=== PATIENT | female | born 2000 | race Caucasian/White ===

== ENCOUNTER 2018-12-24 01:16 | Emergency (ER) | payer OTHER, MEDICAID, SELFPAY ==
[2018-12-24 01:32] VITALS: BP 125/78; PULSE 108; RESP 18; TEMP 36.5; O2SAT 98
[2018-12-24 01:50] LABS: Influenza A and B by PCR Rapid Negative (Negative)
[2018-12-24 02:28] VITALS: PULSE 89; RESP 20; O2SAT 99
[2018-12-24] MEDS: ALBUTEROL/IPRATROPIUM 3 ML AMPUL INH (02:29)
[2018-12-24 02:53] VITALS: BP 122/76; PULSE 88; RESP 18; O2SAT 100
--- NOTE | 2018-12-24 03:05 | ED.URI ---
HPI - URI/Sore Throat General Chief Complaint: Upper Respiratory Symptoms Stated Complaint: hard time breathing Time Seen by Provider: 12/24/18 02:58 Source: patient Mode of arrival: Ambulatory Limitations: no limitations History of Present Illness HPI Narrative: 18-year-old female comes in with complaint of no fevers but sore throat, cough, some nasal congestion. She states she has also been wheezing more frequently. Patient states that her sore throat has been very sore for the last couple days. Patient does have asthma. She has little bit of chest pressure. She states she has had a hard time using her inhaler. Patient has been a little bit hoarse but not muffled. She feels like she can swallow things okay but it is comfortable. She denies any other medical issues. Denies any allergies to medications. She does smoke tobacco. Related Data Previous Rx's Medication Instructions Recorded amoxicillin 500 mg PO TID #30 tab 12/24/18 Review of Systems Review of Systems ROS Unobtainable: All systems reviewed & are unremarkable except as noted in HPI and below Patient History Medical/Surgical History Medical History (Updated 12/24/18 @ 03:06 by Tatyana Pal DO) Asthma (Acute) Social History Smoking Status: Current every day smoker Family/Social History Social History Smoking Status: Current every day smoker tobacco type: cigarettes alcohol intake frequency: a few times a month Substance Use Type: does not use Exam Narrative Exam Narrative: GEN: well nourished, well appearing female, alert and oriented x 3, patient appears to be in no acute distress. HEENT: Atraumatic, pupils are equal round reactive to light, extraocular movements are intact, nares are clear, TMs are clear with no fluid, there is no conjunctival pallor. Throat is erythematous with exudate, bilateral tonsil enlargement. Uvula is midline. Patient is mildly hoarse but not muffled. No stridor or wheezing, no tried potting. HEART: Regular rate and rhythm without murmur, clicks, rubs. LUNGS:Lungs clear to auscultation, no wheezes, rales, crackles, chest moves symmetrically, no tachypnea. Patient does have a dry cough. ABD:bowel sounds normal, soft, non-tender, no guarding, rebound, rigidity, no masses noted, no hepatosplenomegaly :No CVA tenderness, [male/female exam] MSCL: Non-tender, full range of motion, normal gait NEURO:CN 2-12 intact, sensation normal SKIN: No erythematous rash, petechiae, no other skin changes. Initial Vital Signs Initial Vital Signs: Vital Signs Temperature 97.7 F 12/24/18 01:32 Pulse Rate 108 H 12/24/18 01:32 Respiratory Rate 18 12/24/18 01:32 Blood Pressure 125/78 12/24/18 01:32 Pulse Oximetry 98 12/24/18 01:32 Course Orders Ordered: ED Orders 12/24/18 01:30 Influenza A and B by PCR Rapid Stat Discontinued Medications Albuterol/Ipratropium (Duoneb) 3 ml INH NOW ONE Stop: 12/24/18 02:28 Last Admin: 12/24/18 02:29 Dose: 3 ml Documented by: KEVIN Amoxicillin (Trimox) 500 mg PO NOW ONE Stop: 12/24/18 03:05 Last Admin: 12/24/18 03:26 Dose: 500 mg Documented by: [email or web address] Dexamethasone (Decadron) 10 mg 0.15 mg/kg (10 mg) PO NOW ONE Stop: 12/24/18 03:05 Last Admin: 12/24/18 03:26 Dose: Not Given Documented by: [email or web address] Dexamethasone (Decadron) 10 mg PO NOW ONE Stop: 12/24/18 03:20 Last Admin: 12/24/18 03:26 Dose: 10 mg Documented by: [email or web address] Vital Signs Vital signs: Vital Signs - 8 hr 12/24/18 01:32 12/24/18 02:28 12/24/18 02:53 Temperature 97.7 F Pulse Rate 108 H 89 88 Respiratory Rate 18 20 18 Blood Pressure 125/78 Blood Pressure [Left Arm] 122/76 Pulse Oximetry 98 99 100 12/24/18 03:20 Temperature Pulse Rate 90 Respiratory Rate 17 Blood Pressure 121/75 Blood Pressure [Left Arm] Pulse Oximetry 100 MDM - URI/Sore Throat Lab Data Attestation: I reviewed the patient's lab results. Labs: Lab Results 12/24/18 Range/Units 01:30 Influenza A & B (PCR) Negative (Negative) Point of Care Testing Rapid Strep A Positive MDM Narrative Medical decision making narrative: Patient breathing treatment prior to eval by muyself, wheezing has resolved, she feels much better. Her heart rate has improved as well. Plan for dose of dexamethasone for pharyngitis but this will also help with any wheezing. She has albuterol at home. She is comfortable with the plan and feeling much better at this time. Discharge Plan Departure Patient Disposition: Home Clinical Impression: Strep throat Discharge Date/Time: 12/24/18 03:20 Instructions: DI for Strep Throat Activity Restrictions/Additional Instructions: Follow-up with primary care in the next week if your symptoms are not resolving. Take antibiotics until they are completely gone. Take Tylenol and/or ibuprofen as needed for pain. Return to the emergency department for persistent fevers that do not respond to Tylenol or ibuprofen, inability to swallow saliva or secretions, muffled voice, stridor, persistent vomiting, rash or other new or concerning symptoms. Prescriptions: New amoxicillin 500 mg tablet 500 mg PO TID Qty: 30 RF: 0
[2018-12-24 03:20] VITALS: BP 121/75; PULSE 90; RESP 17; O2SAT 100
[2018-12-24] MEDS: DEXAMETHASONE 10 MG/ML VIAL PO (03:26)
[2018-12-24] MEDS: AMOXICILLIN 250 MG CAPSULE 500 MG PO (03:26)
== END 2018-12-24 03:20 | disposition home or self-care (01) ==
PROVIDERS: Emergency Provider Emergency Medicine
DX: J02.0 Streptococcal pharyngitis (principal)
CPT/HCPCS: 87400; 87502; 87880; 94640; 99282; 99283; J1100